=== PATIENT | male | born 2000 | race Caucasian/White ===

== ENCOUNTER 2022-06-15 11:49 | Emergency (ER) | payer BC, OTHER ==
[2022-06-15 12:23] VITALS: BP 144/75; PULSE 103
[2022-06-15] MEDS: Ketorolac 30 MG/ML SDV IM ONE (12:35)
== END 2022-06-15 13:17 | disposition home or self-care (01) ==
LOC: FB.ED 11:49
DX: R07.9 Chest pain, unspecified (principal); Z91.018 Allergy to other foods; Z79.899 Other long term (current) drug therapy
CPT/HCPCS: 36415; 71046; 84484; 85379; 93005; 93010; 96372; 99281; 99285; J1885